=== PATIENT | male | born 1995 | race Caucasian/White ===

== ENCOUNTER 2025-06-22 09:37 | Emergency (ER) | payer MEDICAID ==
[~2025-06-22] VITALS: Ht 175.3 cm; Wt 102.3 kg
[2025-06-22 09:40] VITALS: TEMP 97.9
[2025-06-22 10:18] LABS: APPEARANCE,URINE CLEAR (CLEAR); GLUCOSE, URINE (UA) NEGATIVE (NEGATIVE); LEUKOCYTE ESTERASE ,URINE NEGATIVE (NEGATIVE); NITRATE,URINE NEGATIVE (NEGATIVE); OCCULT BLOOD,URINE NEGATIVE (NEGATIVE); SPECIFIC GRAVITIY, URINE 1.013 (1.003-1.030)
[2025-06-22 10:38] LABS: PLATELET COUNT (AUTO) 393 K/uL (150-450); RED BLOOD CELL COUNT(AUTO) 5.84 MIL/uL (4.50-5.90); RED CELL DISTRIBUTION WIDTH 14.3 % (11.5-14.5); WHITE BLOOD COUNT (AUTO) 10.2 K/uL (4.5-11.0)
[2025-06-22 10:46] LABS: CALCIUM, TOTAL 9.4 mg/dL (8.8-10.5); CREATININE 1.10 mg/dL (0.60-1.30); GLOMERULAR FILTR. RATE CALC > 60 mL/min (>60); GLUCOSE,RANDOM 101 mg/dL (70-110); SODIUM SERUM 138 mmol/L (136-145); UREA NITROGEN, BLOOD 8 mg/dL (7-18)
[2025-06-22 10:50] LABS: ASPARTATE AMINOTRANSFERASE 16.0 U/L (15-37); TOTAL PROTEIN, SERUM 9.0 g/dL (6.4-8.2)
[2025-06-22 11:02] VITALS: BP 135/78; PULSE 78; RESP 18; O2SAT 99
== END 2025-06-22 11:57 | disposition home or self-care (01) ==
LOC: EMS 09:37
DX: K85.90 Acute pancreatitis without necrosis or infection, unspecified (principal)
CPT/HCPCS: 80048; 80076; 81003; 83690; 85025; 99283